=== PATIENT | female | born 1980 | race Caucasian/White ===

== ENCOUNTER 2017-07-29 06:55 | Day surgery (SDC) | payer OTHER ==
[~2017-07-29 06:55] MED LIST: RINGER'S SOLUTION,LACTATED 1,000 ML IV PRN; ceFAZolin SODIUM 1 GM in DEXTROSE 5 % IN WATER 100 ML IV PRN
[2017-07-29] MEDS ORDERED: RINGER'S SOLUTION,LACTATED 1,000 ML IV ONE ×2 (07:28→09:20)
[2017-07-29] MEDS ORDERED: LIDOCAINE HCL/EPINEPHRINE 50 ML VIAL IJ ONE (08:05)
--- NOTE | 2017-07-29 09:42 | OR ---
Operative Report - Dictated Report Narrative: DATE OF PROCEDURE: 07/29/2017 INDICATIONS: Metrorrhagia unresponsive to conservative therapy PREOPERATIVE DIAGNOSIS: Menometrorrhagia unresponsive to conservative therapy POSTOPERATIVE DIAGNOSIS: Same with grade 2 apical prolapse PROCEDURE: Total vaginal hysterectomy, Bilateral salpingectomy, Cystoscopy, bilateral uterosacral ligament suspension SURGEON: Palak Sherwood D.O. [employer]ER: OR staff ANESTHESIA: General ESTIMATED BLOOD LOSS: 75 mL URINE OUTPUT: 350 mL FLUID REPLACEMENT: 800 mL SPECIMEN(S): Uterus, cervix, and tubes FINDINGS: Normal-appearing uterus, tubes, and ovaries with grade 2 apical prolapse. Normal bladder, bilateral ureteral jets seen TECHNIQUE: The patient was taken to the operating room and placed in dorsal lithotomy position after adequate general anesthesia was obtained SCDs placed and 1 g of Ancef given intravenously. The cervix was grasped with 2 single- tooth tenacula and a paracervical block was given using 1% lidocaine with epinephrine. Posterior colpotomy was performed using Joe scissors. A long weighted speculum was placed into the posterior cul-de-sac. Anterior colpotomy was performed with Joe scissors and a right angle Tristan retractor was placed to retract the bladder. The right uterosacral ligament was grasped with a curved Horton transected and Tristan stitch tied. The exact same was done on the other side. The remaining pedicles were then sequentially clamped, Tristan stitch tied, and transected. The uterus was removed in total with the right fallopian tube attached. The left fallopian tube Jennifer salpinx was sequentially clamped, cut, and tied. Excellent hemostasis was noted. The left uterosacral ligament was placed on tension and grasped at the level of the ischial spine with a long Allis clamp. The left pedicle suture was placed through the uterosacral ligament at the level of the ischial spine and then back out through the vaginal cuff. The exact same was done on the patient's right side. The vaginal cuff was closed with a series of [id number] 0 Vicryl sutures. The corner stitches were tied, bringing the vaginal apex up to the level of the ischial spine. Cystoscopy was performed noting urine spurting freely from both ureteral orifices. The bladder was drained and the patient was transferred to postanesthesia care unit in good condition. Sponge, lap, instrument, and needle count were correct x 2. POSTOPERATIVE CONDITION: Good
[2017-07-29] MEDS ORDERED: MORPHINE SULFATE 2 MG/ML DISP.SYRIN IV PRN (10:10)
[2017-07-29] MEDS ORDERED: oxyCODONE HCL/ACETAMINOPHEN 1 TAB TABLET PO PRN (10:10)
[2017-07-29] MEDS ORDERED: IBUPROFEN 800 MG TABLET ONE (11:00)
[2017-07-29 11:53] VITALS: BP 132/81
== END 2017-07-29 06:56 | disposition home or self-care (01) ==
LOC: AMB 06:55
PROVIDERS: ATTEND Obstetrics & Gynecology
PROC: 0UTC7ZZ Resection of Cervix, Via Natural or Artificial Opening (ICD-10-PCS; 2017-07-29)
PROC: 0UT77ZZ Resection of Bilateral Fallopian Tubes, Via Natural or Artificial Opening (ICD-10-PCS; 2017-07-29)
PROC: 0UT97ZZ Resection of Uterus, Via Natural or Artificial Opening (ICD-10-PCS; principal; 2017-07-29 08:00)
DX: N81.4 Uterovaginal prolapse, unspecified (principal); N92.1 Excessive and frequent menstruation with irregular cycle; N72 Inflammatory disease of cervix uteri; Z68.27 Body mass index [BMI] 27.0-27.9, adult